=== PATIENT | female | born 1970 | race Caucasian/White ===

== ENCOUNTER 2017-01-01 21:25 | Emergency (ER) | payer MEDICAID, OTHER ==
[~2017-01-01] VITALS: Ht 157.5 cm; Wt 59.0 kg
[2017-01-01 21:29] VITALS: Ht 157.5 cm; Wt 59.0 kg
[2017-01-01] MEDS ORDERED: ONDANSETRON (ODT) 4 MG TAB ODT STA (22:41)
[2017-01-01] MEDS ORDERED: HYDROCODONE/APAP (5/325) TAB PO ONE (23:00)
[2017-01-01 23:11] LABS: ADD UMIC YES; URINE BILIRUBIN (Dip) NEGATIVE (NEGATIVE); URINE BLOOD (Dip) 3+ (NEGATIVE); URINE COLOR AMBER (YELLOW); URINE KETONES (Dip) NEGATIVE (NEGATIVE); URINE LEUKOCYTE ESTERASE (Dip) 3+ (NEGATIVE); URINE NITRITE (Dip) POSITIVE (NEGATIVE); URINE TOTAL PROTEIN (Dip) 2+ (NEGATIVE); URINE UROBILINOGEN (Dip) 1.0 E.U./dL (0.1-1.0)
[2017-01-01 23:25] LABS: URINE RBCS >200 /HPF (0)
[2017-01-01 23:26] LABS: BACTERIA,URINE MANY; SQUAMOUS EPITHELIAL CELL,UR FEW
[2017-01-01] MEDS ORDERED: CEPH-443 PO (23:36)
[2017-01-01] MEDS ORDERED: ACET500C5 PO (23:37)
[2017-01-01] MEDS ORDERED: PHEN-538 PO (23:38)
[2017-01-01] MEDS ORDERED: ONDA4TAB8 PO (23:39)
--- NOTE | 2017-01-01 23:45 | ERD ---
ER Documentation Chief Complaint Date/Time DATE: 01/01/17 TIME: 23:40 Chief Complaint URINARY FREQUENCY/URGENCY/DYSURIA WITH HEMATURIA SINCE YESTERDAY HPI This 46-year-old female who presents the emergency department today complaining of urinary urgency and burning with urination that started yesterday. Patient also states that she has some blood in her urine and feels some pelvic pressure. States she also has some lower back pain however she has a history of sciatic pain for which she is being evaluated. Patient states she had a history of kidney infections are probably 5-6 years ago. States that in October she was diagnosed with a UTI and was given antibiotics however she is unsure of the name. States she took one Pyridium today. States that she does have some nausea but denies any fevers or chills. ROS All systems reviewed and are negative except as per history of present illness. Medications Home Meds Active Scripts Ondansetron Hcl* (Zofran*) 4 Mg Tablet, 4 MG PO Q6H for NAUSEA AND/OR VOMITING, #30 TAB Prov:REBEKA STEPHEN PA-C 01/01/17 Phenazopyridine Hcl* (Pyridium*) 200 Mg Tab, 200 MG PO TID Y for URINARY PAIN, # 6 TAB Prov:REBEKA STEPHEN PA-C 01/01/17 Acetaminophen* (Tylophen*) 500 Mg Capsule, 1 CAP PO Q6H Y for PAIN AND OR ELEVATED TEMP, #30 CAP Prov:REBEKA STEPHENC 01/01/17 Cephalexin* (Keflex*) 500 Mg Capsule, 500 MG PO QID for 7 Days, CAP Prov:REBEKA STEPHENC 01/01/17 Allergies Allergies: Coded Allergies: levofloxacin (Verified Allergy, Severe, 10/31/14) rashes PMhx/Soc History of Surgery: Yes ( X1) Anesthesia Reaction: No Hx Neurological Disorder: No Hx Respiratory Disorders: Yes (ASTHMA) Hx Cardiac Disorders: No Hx Psychiatric Problems: No Hx Miscellaneous Medical Probl: No Hx Alcohol Use: No Hx Substance Use: No Hx Tobacco Use: No Smoking Status: Never smoker Physical Exam Vitals Vital Signs Date Time Temp Pulse Resp B/P Pulse Ox O2 Delivery O2 Flow Rate FiO2 01/01/17 21:29 99.4 82 16 123/78 100 Physical Exam Const: Pleasant, no acute distress Head: Atraumatic Eyes: Normal Conjunctiva ENT: Normal External Ears, Nose and Mouth. Neck: Full range of motion..~ No meningismus. Resp: Clear to auscultation bilaterally Cardio: Regular rate and rhythm, no murmurs Abd: Soft, suprapubic pain non distended. Normal bowel sounds. No right lower quadrant pain. No left lower quadrant pain. No tenderness McBurney's. Skin: No petechiae or rashes Back: Right-sided paraspinal tenderness with symptoms of sciatica. No CVA tenderness. Ext: No cyanosis, or edema Neur: Awake and alert Psych: Normal Mood and Affect Results 24 hrs Laboratory Tests Test 01/01/17 22:50 Urine Color ANNIE Urine Clarity CLOUDY Urine pH 6.5 Urine Specific [place] 1.010 Urine Ketones NEGATIVE Urine Nitrite POSITIVE Urine Bilirubin NEGATIVE Urine Urobilinogen 1.0 E.U./dL Urine Leukocyte Esterase 3+ Urine Microscopic RBC >200/HPF Urine Microscopic WBC 5-10/HPF Urine Squamous Epithelial Cells FEW Urine Bacteria MANY Urine Hemoglobin 3+ Urine Glucose 0.1%% Urine Total Protein 2+ Current Medications Medications (Trade) Dose Ordered Sig/Ray Route PRN Reason Start Time Stop Time Status Last Admin Dose Admin Acetaminophen/ Hydrocodone Bitart ([place] (5/325)) 1 tab ONCE ONCE PO 01/01/17 23:00 01/01/17 23:01 DC 01/01/17 23:25 Ondansetron HCl (Zofran Odt) 4 mg ONCE STAT ODT 01/01/17 22:41 01/01/17 22:42 DC 01/01/17 23:25 Procedures/MDM This a 46-year-old female who presents to the emergency department today complaining of dysuria with hematuria since yesterday. Patient has a history of a urinary tract infection in October 2016 and was diagnosed by her primary care doctor. She was also complaining of hematuria and therefore did obtain a urinalysis UA shows positive nitrites and 3+ leukocyte esterase and greater than 200 red blood cells. There are 5-10 microscopic white blood cells. Patient was sent for culture given that patient was unsure of what medication she was prescribed back in October. Patient symptoms at this time is consistent with urinary tract infection and acute cystitis. I have explained to the patient that she does have hematuria that she would benefit from follow-up with her primary care physician for further evaluation and management possible referral to urology specialist especially if she is continuing to have urinary tract infections. Patient understood. I did give her a list of urology referrals as well. Patient is afebrile and otherwise well-appearing. She has no CVA tenderness. Low suspicion for pyelonephritis however nephrolithiasis could also be considered given patient's hematuria. Patient was given [place] and Zofran here in the emergency department. Patient was given a prescription for Keflex, Tylenol, Pyridium. At this time the patient is stable for discharge and outpatient management. Patient should follow up with their PCP in the next 1-2 days. They may return to the emergency department sooner for any persistent or worsening of symptoms. Patient understood and agreed with the plan. I discussed the patient with Dr. Gallegos and he is in agreement with the plan. Departure Diagnosis: Primary Impression: UTI (urinary tract infection) Urinary tract infection type: site unspecified Hematuria presence: with hematuria Qualified Code: N39.0 - Urinary tract infection with hematuria, site unspecified Condition: Fair Patient Instructions: Hematuria: Possible Causes, Understanding Urinary Tract Infections (UTIs) Referrals: JANY LCARK MD,LENIN UNGER,GABO ESQUIVEL,TAMMY DIAZ,EMERALD HAYES,WILLY MARIA,KALYAN BABB,GOGO LEY,FIDEL ORDOÑEZ,DAIN PETIT,KELSI ESQUEDA MD= GENESIS SANTACRUZ Additional Instructions: Llame al doctor NELDA y canelo pamela DEIDRA PARA DENTRO DE 1-2 VILLEGAS.Dgale a la secretaria que nosotros le instruimos hacer esta deidra.Avise o llame si eric condicin se empeora antes de la deidra. Regresa aqui si peor o no mejor. Make an appointment with primary care doctor for referral for possible referral to urology specialist Take antibiotics as prescribed Take Tylenol for pain Take Pyridium for burning symptom REBEKA STEPHEN PA-C January 01, 2017 23:44
== END 2017-01-01 23:48 | disposition home or self-care (01) ==
LOC: FTE 21:25
DX: N39.0 Urinary tract infection, site not specified (principal); J45.909 Unspecified asthma, uncomplicated; R11.0 Nausea
CPT/HCPCS: 81001; 87086; Z7502; Z7610; 81003; 99284